=== PATIENT | male | born 1960 | race Caucasian/White ===

== ENCOUNTER 2021-01-10 16:19 | Emergency (ER) | payer MEDICARE, OTHER ==
[~2021-01-10] VITALS: Ht 177.8 cm; Wt 123.8 kg
--- OUTSIDE RECORDS SUMMARY | 2021-01-10 16:23 | XMS REPORT | Clinical Summary ---
Author Author [facility] Organization [facility] Address Unknown Phone Unavailable Care Team Providers Care Freight Representative Name Role Phone PhilippegavinoargenisNoel Leanna MANAGER SURGERY PCP Source Comments Some departments are not documenting in the electronic medical record. If you d o not see the information that you expected, contact Release of Information in [facility] [employer] Information Management department at [phone] for further assistan ce in locating additional records.[facility] Allergies Comments Active Allergy Reactions Severity Noted Date PTSD Gabapentin MENTAL STATUS High 12/13/2017 CHANGES Morphine UNKNOWN Low 12/13/2017 AND HIVES Lxcsnvm-Ulh-Ohc Reductase SEIZURES High 12/2017 Inhibitors Medications End Date Status Medication Sig Dispensed Refills Start Date Active ALPRAZolam (XANAX) 0.5 mg Take 1 mg by 0 tablet mouth every 8 12 hours. Active losartan(+) (COZAAR) 100 0 mg tablet 9 Active metoprolol XL (TOPROL XL) Take 25 mg by 0 25 mg extended release mouth daily. 8 tablet Active traMADol (ULTRAM) 50 mg Take 1 tablet 0 tablet by mouth. 9 Active aspirin 325 mg tablet Take 325 mg 0 by mouth daily. Take with food. Active diclofenac (VOLTAREN) 1 % 0 topical gel 9 Active albuterol (PROAIR HFA, 0 VENTOLIN HFA, PROVENTIL 9 HFA) 90 mcg/actuation inhaler Active cyclobenzaprine Take 10 mg by 0 (FLEXERIL) 10 mg tablet mouth every 8 12 hours as needed. Active docosahexanoic acid/epa Take by 0 (FISH OIL PO) mouth. Active traZODone (DESYREL) 50 mg 0 tablet 9 Active Problems Not on file Medical History Medical History Date Comments Heart attack (HCC) Essential hypertension COPD (chronic obstructive pulmonary disease) (HCC) Diverticulitis Arthritis Nerve injury RSD (reflex sympathetic dystrophy) Depression Anxiety Agoraphobia Social History Date Tobacco Use Types Packs/Day Years Used Never Smoker Smokeless Tobacco: Never Used Comments Alcohol Use Standard Drinks/Week Yes 0 (1 standard drink = 0.6 o z pure alcohol) Sex Assigned at Date Recorded Not on file Last Filed Vital Signs Reading Time Taken Comments Vital Sign 121/74 03/13/2019 9:23 AM CUSTOMER ASSISTANCE REPRESENTATIVE Blood Pressure 82 03/13/2019 9:23 AM CUSTOMER ASSISTANCE REPRESENTATIVE Pulse - - Temperature 20 03/13/2019 9:23 AM CUSTOMER ASSISTANCE REPRESENTATIVE Respiratory Rate 94% 03/13/2019 9:23 AM CUSTOMER ASSISTANCE REPRESENTATIVE Oxygen Saturation - - Inhaled Oxygen Concentration 129.3 kg (285 lb) 03/13/2019 9:23 AM CUSTOMER ASSISTANCE REPRESENTATIVE Weight 179.1 cm (5' 10.5") 03/13/2019 9:23 AM CUSTOMER ASSISTANCE REPRESENTATIVE Height 40.32 03/13/2019 9:23 AM CUSTOMER ASSISTANCE REPRESENTATIVE Body Mass Index Plan of Treatment Health Maintenance Due Date Last Done Comments HIV SCREENING 08/18/1975 DTAP/TDAP VACCINES (1 - 1978 Tdap) HEPATITIS C SCREENING 1978 PHYSICAL (COMPREHENSIVE) 1978 EXAM COLORECTAL CANCER 2010 SCREENING SHINGLES RECOMBINANT 2010 VACCINE (1 of 2) INFLUENZA VACCINE 02/05/2021 02/22/2012 Results Not on filefrom Last 3 Months Insurance Type Payer Benefit Subscriber ID Effective Phone Address Plan / Dates Group Indemnity [facility] [id number] 2019-P CHOICE/CHO resent ICE PLUS [id number] Advance Directives Patient Dog Or Animal Sitter Explanation Type Date Recorded Advance Directive/DPOA
--- OUTSIDE RECORDS SUMMARY | 2021-01-10 16:23 | XMS REPORT | Clinical Summary ---
Author Author [facility] Organization [facility] Address Unknown Phone Unavailable Care Team Providers Care Large Sheetfed Press Operator Name Role Phone Figueroa Vazquez MD PCP Allergies No Known Active Allergies Medications End Date Status Medication Sig Dispensed Refills Start Date Active aspirin 81 MG chewable Chew 81 mg 0 tablet daily. Active LOSARTAN POTASSIUM Take by 0 (LOSARTAN ORAL) mouth. Active METOPROLOL SUCCINATE Take by 0 (TOPROL XL ORAL) mouth. Active Problems Not on file Social History Date Tobacco Use Types Packs/Day Years Used Current Every Day Smoker 1 Smokeless Tobacco: Former User Comments Alcohol Use Standard Drinks/Week Yes 42 (1 standard drink = 0.6 oz pure alcohol) Sex Assigned at Date Recorded Not on file Last Filed Vital Signs Reading Time Taken Comments Vital Sign 120/55 01/05/2015 8:50 PM CDT Blood Pressure 84 01/05/2015 8:50 PM CDT Pulse 36.8 C (98.2 F) 01/05/2015 6:30 PM CDT Temperature 18 01/05/2015 8:50 PM CDT Respiratory Rate 95% 01/05/2015 8:00 PM CDT Oxygen Saturation - - Inhaled Oxygen Concentration 137.9 kg (304 lb) 01/05/2015 6:30 PM CDT Weight - - Height - - Body Mass Index Plan of Treatment Not on file Results Not on filefrom Last 3 Months Insurance Type Payer Benefit Subscriber ID Effective Phone Address Plan / Dates Group [facility] [id number] 2014-P resent Gama Aguiar Personal/F Self 1960 [address] ([address]) EMILIANO PEREZ [id number]
--- NOTE | 2021-01-10 16:42 | ED General ---
General Chief Complaint: Dizziness/Syncope Stated Complaint: DIZZINESS; SOB Nursing Triage Note: Patient reports he has felt dizzy, shaky, and his hands have been tingling for the last 2-3 days. He reports he felt this way in November and was admitted to the hospital for a low sodium level. Source of Information: Patient, EMS Exam Limitations: No Limitations History of Present Illness Date Seen by Provider: Jan 10, 2021 Time Seen by Provider: 16:19 Initial Comments 60-year-old male with past medical history of CAD with stenting on Plavix, COPD, hypertension, alcohol use disorder coming in via EMS from home due to general weakness, tingling in his hands, confusion, and some falls. He states this has been worsening for the past 2 days. He says last time he felt this way his sodium was very low and he had to be admitted to the hospital. He also states he is feeling more short of breath consistent with his COPD, always is coughing but believes he is coughing a bit more. Denies any fever or chills. Better after he uses his inhalers. Denies any chest pain, abdominal pain, nausea, vomiting, diarrhea, dysuria, focal weakness, vision changes, headache, or any other concerns. He says he drinks 1 moderate-sized glass of liquor every night and that he has only had 2 beers today. Allergies and Home Medications Allergies Coded Allergies: atorvastatin (Verified Allergy, Unknown, 01/10/21) gabapentin (Verified Allergy, Unknown, 01/10/21) morphine (Verified Allergy, Unknown, 01/10/21) Patient Home Medication List Home Medication List Reviewed: Yes Azithromycin (Azithromycin) 250 Mg Tablet, 250 MG PO DAILY Prescribed by: DANISH PARSON on 01/10/21 1736 Review of Systems Review of Systems Constitutional: No chills, No fever EENTM: No blurred vision Respiratory: cough, short of breath Cardiovascular: No chest pain Gastrointestinal: No abdominal pain, No diarrhea, No nausea, No vomiting Genitourinary: No dysuria Musculoskeletal: No back pain, No joint pain Skin: No rash Psychiatric/Neurological: No Symptoms Reported Hematologic/Lymphatic: No Symptoms Reported Immunological/Allergic: no symptoms reported All Other Systems Reviewed Negative Unless Noted: Yes Past Srcipcq-Dqztrk-Socqdd Hx Patient Social History Tobacco Use?: No (quit smoking a couple months ago) Alcohol Use?: Yes Past Medical History Surgeries: Yes Cardiac Physical Exam Vital Signs Vital Signs - First Documented 01/10/21 16:20 Temp 36.6 Pulse 75 Resp 20 B/P (MAP) 134/67 (89) Pulse Ox 96 O2 Delivery Room Air Capillary Refill : Less Than 3 Seconds Height, Weight, BMI Height: '" Weight: lbs. oz. kg; 39.00 BMI Method: General Appearance: No Apparent Distress, WD/WN Eyes: Bilateral Eye PERRL HEENT: PERRL/EOMI, Normal ENT Inspection, Pharynx Normal Neck: Full Range of Motion, Normal Inspection, Non Tender, Supple Respiratory: Chest Non Tender, No Accessory Muscle Use, No Respiratory Distress, Rales, Wheezing Cardiovascular: Regular Rate, Rhythm, No Murmur, Normal Peripheral Pulses Gastrointestinal: Normal Bowel Sounds, Non Tender, Soft; No Distended, No Guarding Back: Normal Inspection, No CVA Tenderness, No Vertebral Tenderness Extremity: Normal Capillary Refill, Normal Inspection, Normal Range of Motion, Non Tender, No Calf Tenderness Neurologic/Psychiatric: Alert, Oriented x3, No Motor/Sensory Deficits, Normal Mood/Affect, training manager II-XII Norm as Tested; No Abnormal Gait, No Aphasia; Other (Normal dptwbu-pi-czvu) Skin: Normal Color, Warm/Dry Lymphatic: No Adenopathy Progress/Results/Core Measures Suspected Sepsis SIRS Temperature: Pulse: 75 Respiratory Rate: 20 Laboratory Tests 01/10/21 16:23: White Blood Count 5.3 Blood Pressure 134 /67 Mean: 89 Laboratory Tests 01/10/21 16:23: Creatinine 0.93, INR Comment 0.9, Platelet Count 238, Total Bilirubin 0.2 Results/Orders Lab Results Laboratory Tests Test 01/10/21 16:23 01/10/21 16:50 Range/Units White Blood Count 5.3 4.3-11.0 10^3/uL Red Blood Count 3.75 L 4.30-5.52 10^6/uL Hemoglobin 12.1 L 13.3-17.7 g/dL Hematocrit 37 L 40-54 % Mean Corpuscular Volume 98 80-99 fL Mean Corpuscular Hemoglobin 32 25-34 pg Mean Corpuscular Hemoglobin Concent 33 32-36 g/dL Red Cell Distribution Width 14.1 10.0-14.5 % Platelet Count 238 130-400 10^3/uL Mean Platelet Volume 9.2 9.0-12.2 fL Immature Granulocyte % (Auto) 0 % Neutrophils (%) (Auto) 65 42-75 % Lymphocytes (%) (Auto) 24 12-44 % Monocytes (%) (Auto) 7 0-12 % Eosinophils (%) (Auto) 3 0-10 % Basophils (%) (Auto) 1 0-10 % Neutrophils # (Auto) 3.5 1.8-7.8 X 10^3 Lymphocytes # (Auto) 1.3 1.0-4.0 X 10^3 Monocytes # (Auto) 0.4 0.0-1.0 X 10^3 Eosinophils # (Auto) 0.2 0.0-0.3 10^3/uL Basophils # (Auto) 0.1 0.0-0.1 10^3/uL Immature Granulocyte # (Auto) 0.0 0.0-0.1 10^3/uL Prothrombin Time 12.3 12.2-14.7 SEC INR Comment 0.9 0.8-1.4 Activated Partial Thromboplast Time 27 24-35 SEC Sodium Level 135 135-145 MMOL/L Potassium Level 4.6 3.6-5.0 MMOL/L Chloride Level 101 98-107 MMOL/L Carbon Dioxide Level 22 21-32 MMOL/L Anion Gap 12 5-14 MMOL/L Blood Urea Nitrogen 16 7-18 MG/DL Creatinine 0.93 0.60-1.30 MG/DL Estimat Glomerular Filtration Rate 83 BUN/Creatinine Ratio 17 Glucose Level 86 70-105 MG/DL Calcium Level 8.5 8.5-10.1 MG/DL Corrected Calcium 8.5 8.5-10.1 MG/DL Magnesium Level 2.1 1.6-2.4 MG/DL Total Bilirubin 0.2 0.1-1.0 MG/DL Aspartate Amino Transf (AST/SGOT) 24 5-34 U/L Alanine Aminotransferase (ALT/SGPT) 19 0-55 U/L Alkaline Phosphatase 58 40-136 U/L Troponin I < 0.30 <0.30 NG/ML Pro-B-Type Natriuretic Peptide 435.9 H <75.0 PG/ML Total Protein 7.1 6.4-8.2 GM/DL Albumin 4.0 3.2-4.5 GM/DL Serum Alcohol 283 H <10 MG/DL My Orders Orders - DANISH PARSON MD Alcohol (01/10/21 16:42) Cbc With Automated Diff (01/10/21 16:42) Comprehensive Metabolic Panel (01/10/21 16:42) Magnesium (01/10/21 16:42) Protime With Inr (01/10/21 16:42) Partial Thromboplastin Time (01/10/21 16:42) Probnp Fs (01/10/21 16:42) Troponin I Fs (01/10/21 16:42) Ekg Tracing (01/10/21 16:42) Covid 19 Inhouse Test (01/10/21 16:42) Chest 1 View Ap/Pa Only (01/10/21 16:42) Ct Head Wo (01/10/21 16:42) Azithromycin Tablet (Zithromax Tablet) (01/10/21 17:45) Vital Signs/I&O 01/10/21 16:20 Temp 36.6 Pulse 75 Resp 20 B/P (MAP) 134/67 (89) Pulse Ox 96 O2 Delivery Room Air Capillary Refill : Less Than 3 Seconds Blood Pressure Mean: 89 Progress Note : Progress Note 60-year-old male with above history coming in due to general weakness, tingling, confusion, with some falls. He does have baseline shortness of breath and cough but he states this is slightly worse than usual. ABCs were intact and vitals were stable on presentation. Does have some wheezing on exam with his COPD, but his breathing had a comfortable rate and his oxygen saturation is 97% on room air. Labs were drawn were significant for negative troponin, BNP around 500, normal sodium, normal creatinine, blood alcohol level near 300. CT head negative for any acute abnormalities. Chest x-ray without any focal infiltrate or pneumothorax on my interpretation. I reevaluated the patient, he was breathing comfortably, continues to not have any neuro deficits. I believe his complaints of his difficulty walking with some falls are more likely related to his alcohol intoxication. When further confronted with this, the patient said he is a and has been drinking like this for some time. I recommended to him a multivitamin with thiamine and B12 given his alcohol use which could potentially help with nerve issues. Given his worsening productive cough in the setting of COPD, I have sent an antibiotic to his pharmacy for COPD exacerbation. I recommended a steroid as well, but he states he does not tolerate them well and does not want to take them. He says he has not been taking his Lasix as of recently and this likely could have a component of why he is feeling dyspneic. Despite him feeling this way, he is breathing at a normal rate, normal oxygen sa turation on room air, and is conversing comfortably. I believe he is stable for discharge. He was sent home with strict return precautions ECG Initial ECG Impression Date: Jan 10, 2021 Initial ECG Impression Time: 16:23 Initial ECG Rate: 63 Comment Normal sinus rhythm with a rate of 63, narrow QRS, normal axis, no significant ST changes or T wave abnormalities, Q waves inferiorly Diagnostic Imaging Diagonstic Imaging: Xray (Chest), CT (Head) Comments [facility] [place] [place] NAME: LATASHA BLACKMAN [facility] REC#: [id number] PT STATUS: REG ER : 1960 PHYSICIAN: DANISH PARSON MD ADMIT DATE: 01/10/21/ER FS Signed Date of Exam:01/10/21 CT HEAD WO PROCEDURE: CT head without contrast. TECHNIQUE: Multiple contiguous axial images were obtained through the brain without the use of intravenous contrast. Auto Exposure Controls were utilized during the CT exam to meet ALARA standards for radiation dose reduction. INDICATION: Altered mental status, fall. COMPARISON: None available. FINDINGS: No intracranial hyperdense hemorrhage or space-occupying mass. No hydrocephalus or midline shift. King-white matter differentiation is well-preserved. Mild global atrophy. No isolated lobar atrophy. Basilar cisterns are widely patent. No fracture of the calvarium. Nasal bones are intact. Paranasal sinuses and mastoid air cells are clear. IMPRESSION: No acute intracranial process by CT. Dictated by: Dictated on workstation # [id number] Dict: 01/10/211703 Trans: 01/10/211705 [id number] Interpreted by: JAVED AVILA MD Electronically signed by: JAVED AVILA MD 01/10/211705 Departure Impression Primary Impression: COPD exacerbation Additional Impression: Alcohol intoxication Qualified Codes: F10.920 - Alcohol use, unspecified with intoxication, uncomplicated Disposition: HOME, SELF-CARE Condition: Stable Departure-Patient Inst. Decision time for Depature: 17:34 Patient Instructions: COPD Exacerbation, Adult ED, Alcohol Use Disorder (DC) Add. Discharge Instructions: You were seen in the emergency department because you are feeling weak, dizzy, and falling at times. You also were complaining of some shortness of breath and increased cough in the setting of your COPD. We recommend paring down on how much you are drinking. I recommend you take a multivitamin with thiamine and vitamin B12 as well which can be helpful for your nerve health especially when drinking alcohol. I have sent a prescription to your pharmacy for an antibiotic as well to take for the next several days. Take your Lasix for the next couple days to help get some excess fluid off which will also help you breathe better. All discharge instructions reviewed with patient and/or family. Voiced understanding. Scripts Azithromycin (Azithromycin) 250 Mg Tablet 250 MG PO DAILY for 5 Days, #5 TAB Prov: DANISH PARSON MD 01/10/21 DANISH PARSON MD Jan 10, 2021 16:42
[2021-01-10 16:48] LABS: HEMATOCRIT 37 % (40-54); HEMOGLOBIN 12.1 g/dL (13.3-17.7); MEAN CORPUSCULAR HEMOGLOBIN 32 pg (25-34); MEAN CORPUSCULAR HGB CONC 33 g/dL (32-36); MEAN CORPUSCULAR VOLUME 98 fL (80-99); MEAN PLATELET VOLUME 9.2 fL (9.0-12.2); PLATELET COUNT 238 10^3/uL (130-400); WHITE BLOOD COUNT 5.3 10^3/uL (4.3-11.0)
[2021-01-10 16:49] LABS: BASOPHILS # (AUTO) 0.1 10^3/uL (0.0-0.1); BASOPHILS % (AUTO) 1 % (0-10); EOSINOPHILS # (AUTO) 0.2 10^3/uL (0.0-0.3); EOSINOPHILS % (AUTO) 3 % (0-10); LYMPHOCYTES # (AUTO) 1.3 X 10^3 (1.0-4.0); LYMPHOCYTES % (AUTO) 24 % (12-44); MONOCYTES # (AUTO) 0.4 X 10^3 (0.0-1.0); MONOCYTES % (AUTO) 7 % (0-12); NEUTROPHILS # (AUTO) 3.5 X 10^3 (1.8-7.8); NEUTROPHILS % (AUTO) 65 % (42-75)
[2021-01-10 16:50] LABS: INR 0.9 (0.8-1.4); PROTHROMBIN TIME PATIENT 12.3 SEC (12.2-14.7)
[2021-01-10 16:51] LABS: CARBON DIOXIDE 22 MMOL/L (21-32); CHLORIDE 101 MMOL/L (98-107); POTASSIUM 4.6 MMOL/L (3.6-5.0); SODIUM 135 MMOL/L (135-145)
[2021-01-10 16:52] LABS: ALANINE AMINOTRANSFERASE 19 U/L (0-55); ALKALINE PHOSPHATASE 58 U/L (40-136); BILIRUBIN,TOTAL 0.2 MG/DL (0.1-1.0); BUN/CREATININE RATIO 17; CALCIUM 8.5 MG/DL (8.5-10.1); CREATININE SERUM 0.93 MG/DL (0.60-1.30); GFR ESTIMATED 83; GLUCOSE 86 MG/DL (70-105); TOTAL PROTEIN 7.1 GM/DL (6.4-8.2)
[2021-01-10 17:06] LABS: MAGNESIUM 2.1 MG/DL (1.6-2.4)
--- NOTE | 2021-01-10 17:06 | Diagnostic Imaging Report ---
PROCEDURE: CT head without contrast. TECHNIQUE: Multiple contiguous axial images were obtained through the brain without the use of intravenous contrast. Auto Exposure Controls were utilized during the CT exam to meet ALARA standards for radiation dose reduction. INDICATION: Altered mental status, fall. COMPARISON: None available. FINDINGS: No intracranial hyperdense hemorrhage or space-occupying mass. No hydrocephalus or midline shift. King-white matter differentiation is well-preserved. Mild global atrophy. No isolated lobar atrophy. Basilar cisterns are widely patent. No fracture of the calvarium. Nasal bones are intact. Paranasal sinuses and mastoid air cells are clear. IMPRESSION: No acute intracranial process by CT. Dictated by: Dictated on workstation # [id number]
--- NOTE | 2021-01-10 17:16 | Diagnostic Imaging Report ---
Chest 1 view AP/PA only. Indication: Shortness of breath. Comparison: None available. Findings: Right basilar ill-defined pulmonary opacities are present. No pleural effusion or pneumothorax. Heart is enlarged. There are changes of CABG. Intact sternal wires. Impression: Right basilar ill-defined pulmonary opacities could be due to pneumonia in the appropriate setting. Alternatively, atelectasis or aspiration could give this appearance. Advise followup PA and lateral chest radiographs in 4 weeks after appropriate medical management to ensure resolution. Dictated by: Dictated on workstation # [id number]
[2021-01-10] MEDS ORDERED: AZIT250T12 PO (17:36)
[2021-01-10 17:44] VITALS: BP 131/72
[2021-01-10] MEDS ORDERED: AZITHROMYCIN 250 MG TAB (ZITHROMAX) PO ONE (17:45)
== END 2021-01-10 17:58 | disposition home or self-care (01) ==
LOC: ER FS 16:20
DX: J44.1 Chronic obstructive pulmonary disease with (acute) exacerbation (principal); F10.129 Alcohol abuse with intoxication, unspecified; Z20.822 Contact with and (suspected) exposure to COVID-19; Z87.891 Personal history of nicotine dependence; Z79.01 Long term (current) use of anticoagulants
CPT/HCPCS: 36415; 70450; 71045; 80053; 83735; 83880; 84484; 85025; 85610; 85730; 87636; 93005; 99284; G0480; 80320